=== PATIENT | female | born 1945 | race Caucasian/White ===

== ENCOUNTER 2016-11-23 20:39 | Emergency (ER) | payer OTHER ==
--- NOTE | 2016-11-23 20:43 | PDOC ---
History of Present Illness - General History Source: Patient Exam Limitations: No Limitations - History of Present Illness Initial Comments: 11/23/16 21:08 The patient is a 71 year old female with a significant past medical history of hypertension, and hyperlipidemia, presenting to the Emergency Department with right lower leg pain for two days. The patient reports that on (11/21) she got up from a seated position and felt a sharp pain down her calf. She reports that since then she has had pain from above the knee down to the calf of her right leg. She reports pain at rest, and pain exacerbated by movement or flexion. She admits to taking Tylenol for the pain as well as Naproxen, and applying heat. She states that it is difficult to walk due to the pain, and that she has stayed in bed for the past day and a half. She denies numbness or tingling. She denies any injury to the knee or leg. The patient denies fever, chills, and cough. Patient denies neck pain, or back pain. Patient denies nausea, vomiting, and diarrhea. Patient denies shortness of breath, chest pain, or palpitation. Patient denies recent travel. Past Medical Hx: breast ca (2010) <Ivana Bui - Last Filed: 11/23/16 21:30> <Frances Howard - Last Filed: 11/24/16 03:06> - General Chief Complaint: Pain, Acute Stated Complaint: PAIN TO RT LOWER CALF Time Seen by Provider: 11/23/16 20:42 Past History <Ivana Bui - Last Filed: 11/23/16 21:30> - Past Medical History Anemia: No (RECENTLY-TRANSFUSED WITH 3UNITS PRBCs AFTER HAVING LABS DRAWN-SAW HER PCP) Asthma: No (....C/O "TIRED,SLEEPY"-NOW FOR EGD) Cancer: Yes (LEFT BREAST DECEMBER 2010) Cardiac Disorders: No CVA: No COPD: No CHF: No Dementia: No Diabetes: No GI Disorders: Yes (HX BLEEDING ULCERS 2007-TRANSFUSED AT THAT TIME) Disorders: No HTN: Yes Hypercholesterolemia: Yes Liver Disease: No Seizures: No Thyroid Disease: No - Surgical History Abdominal Surgery: No Appendectomy: Yes (1950) Cardiac Surgery: No Cholecystectomy: No Lung Surgery: No Neurologic Surgery: No Orthopedic Surgery: No - Immunization History Immunization Up to Date: Yes - Psycho/Social/Smoking Cessation Hx Anxiety: No Suicidal Ideation: No Smoking Status: No Smoking History: Never smoked Have you smoked in the past 12 months: No Number of Cigarettes Smoked Daily: 0 Hx Alcohol Use: No Drug/Substance Use Hx: No Substance Use Type: None Hx Substance Use Treatment: No <Frances Howard - Last Filed: 11/24/16 03:06> - Past Medical History Allergies/Adverse Reactions: Allergies Allergy/AdvReac Type Severity Reaction Status Date / Time No Known Drug Allergies Allergy Verified 11/23/16 20:41 Home Medications: Ambulatory Orders Atorvastatin Ca [Lipitor] 10 mg PO Q48H 05/23/16 Dorzolamide HCl [Trusopt 2% -] 1 drop OD BID 05/23/16 Travoprost [Travatan Z] 5 ml OU HS 05/23/16 Pantoprazole Sodium [Protonix -] 40 mg PO BID tablet.ec 05/25/16 Ferrous Sulfate [Slow Release Iron] 142 mg PO DAILY 05/31/16 Fluticasone Prop 0.05% Nasal [Flonase -] 1 - 2 spray NS DAILY 05/31/16 Amlodipine Besylate/Benazepril [Lotrel 5-40 mg Capsule] 1 each PO DAILY Tramadol HCl 50 mg PO TID PRN #20 tablet MDD 3 tablets 11/23/16 Review of Systems - Review of Systems Able to Perform ROS?: Yes Comments:: 11/23/16 21:08 CONSTITUTIONAL: Absent: fever, no chills, no fatigue EYES: Absent: visual changes ENT: Absent: ear pain, no sore throat CARDIOVASCULAR: Absent: chest pain, no palpitations RESPIRATORY: Absent: cough, no SOB GI: Absent: abdominal pain, no nausea, no vomiting, no constipation, no diarrhea GENITOURINARY: Absent: dysuria, no frequency, no hematuria MUSCULOSKELETAL: Present: + pain to right knee, + pain to right lower leg Absent: back pain, no arthralgia, no myalgia SKIN: Absent: rash NEURO: Absent: headache <Ivana Bui - Last Filed: 11/23/16 21:30> *Physical Exam - Vital Signs Last Vital Signs Temp Pulse Resp BP Pulse Ox 99.2 F 96 H 18 163/93 100 11/23/16 20:45 11/23/16 20:45 11/23/16 20:45 11/23/16 20:45 11/23/16 20:45 - Physical Exam Comments: 11/23/16 21:09 GENERAL: The patient is awake, alert, and fully oriented, in no acute distress. HEAD: Normal with no signs of trauma. EYES: Pupils equal, round and reactive to light, extraocular movements intact, sclera anicteric, conjunctiva clear with no pallor. ENT: Ears normal, nares patent, oropharynx clear without exudates. Moist mucous membranes. NECK: Normal range of motion, supple without lymphadenopathy, JVD, or masses. LUNGS: Breath sounds equal, clear to auscultation bilaterally. No wheeze/ crackles. HEART: Regular rate and rhythm, normal S1 and S2 without murmur or rub. ABDOMEN: Soft/nontender/nondistended. BS wnl. No guarding or rebound. No palpable masses. No hepatosplenomegaly. EXTREMITIES: Minimal edema of right knee, no palpable cords. Tenderness of the distal posterior thigh, popliteal region, and the proximal lower leg. No erythema or increased warmth. Pain reproduced with flexion of the knee. No ligament instability. No deformity no ecchymosis. Strongly palpable pulse at midfoot. Motor and sensory functioning intact. Normal range of motion. No clubbing or cyanosis. NEUROLOGICAL: Cranial nerves II through XII grossly intact. Normal speech. PSYCH: Normal mood, normal affect. SKIN: Warm, Dry, normal turgor, no rashes or lesions noted. <Ivana Bui - Last Filed: 11/23/16 21:30> Progress Note - Progress Note Progress Note: Documentation has been prepared under my direction and personally reviewed by me in its entirety. I attest that this documented accurately reflects all work, treatment, procedures and medical decision making performed by me. <Frances Howard - Last Filed: 11/24/16 03:06> Medical Decision Making - Medical Decision Making As noted above, this 71-year-old woman presents with right leg pain that began 2 days prior to admission when she arose from a seated position. No history of overuse or trauma. No previous significant pain with movement. Patient states that she is active and previously had no limitations of her activity secondary to pain in her extremities. No history of risk factors for thromboembolic disease. Exam as noted. Doppler venous study of the right lower extremity shows no evidence of DVT. There is a small anterior fluid collection consistent with effusion of the knee area. 2 position right knee x-ray performed. This shows evidence of some DJD ( spurring of the patella, etc.) but no fracture or dislocation. Knee immobilizer will be placed and patient advised to use this when she is up and around. She should not work until seen by orthopedics (patient is followed by [facility]). 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 She states that she generally needs to move around frequently during her work and sits on low chairs while working with the children. Patient does not take nonsteroidal anti-inflammatories because of history of peptic ulcer disease. She states that Tylenol was fairly ineffective for her episodes of pain. Prescription for Ultram(#20) will transmitted to her pharmacy to be used at needed for more severe pain. Patient was advised that the medication may make her drowsy and not to use it when driving or during other activities that required full attention <Frances Howard - Last Filed: 11/24/16 03:06> *DC/Admit/Observation/Transfer - Attestations Scribe Attestion: 11/23/16 21:11 Documentation prepared by Ivana Bui, acting as medical coding specialist for Frances Howard MD. <Ivana Bui - Last Filed: 11/23/16 21:30> <Frances Howard - Last Filed: 11/24/16 03:06> Diagnosis at time of Disposition: Knee sprain Qualifiers: Encounter type: initial encounter Involved ligament of knee: unspecified ligament Laterality: right Qualified Code(s): S83.91XA - Sprain of unspecified site of right knee, initial encounter - Discharge Dispostion Condition at time of disposition: Fair - Prescriptions Prescriptions: Tramadol HCl 50 mg PO TID PRN #20 tablet MDD 3 tablets PRN Reason: Moderate Pain - Referrals Referrals: Vitaliy Christie MD [Staff Physician] - - Patient Instructions Printed Discharge Instructions: DI for Knee Sprain Additional Instructions: Rest Knee immobilizer when up and around until seen by orthopedics Tylenol as needed for mild pain Tramadol 50 mg up to 3 times a day as needed for more severe pain No work until , November Follow-up with orthopedics ([facility]) within the next 2-3 days - Post Discharge Activity Work/School Note: Back to Work
[2016-11-23 20:56] VITALS: TEMP 99.2; BMI 32.1
[2016-11-23] MEDS ORDERED: KETOROLAC TROMETHAMINE 60 MG/2 ML VIAL IM ONE (22:27)
[2016-11-23] MEDS ORDERED: KETOROLAC TROMETHAMINE 60 MG/2 ML VIAL ONE (22:28)
[2016-11-23 23:23] VITALS: BP 155/82; PULSE 88
== END 2016-11-23 23:23 | disposition home or self-care (01) ==
LOC: FER 20:39
PROC: 3E0233Z Introduction of Anti-inflammatory into Muscle, Percutaneous Approach (ICD-10-PCS; principal; 2016-11-23)
PROC: 2W3QX1Z Immobilization of Right Lower Leg using Splint (ICD-10-PCS; 2016-11-23)
DX: S83.91XA Sprain of unspecified site of right knee, initial encounter (principal); X58.XXXA Exposure to other specified factors, initial encounter; Y93.9 Activity, unspecified; Y92.9 Unspecified place or not applicable; I10 Essential (primary) hypertension; E78.5 Hyperlipidemia, unspecified; Z85.3 Personal history of malignant neoplasm of breast
CPT/HCPCS: 73560-TC-RT; 93971-TC; 99282-25

== ENCOUNTER 2017-01-21 16:18 | Inpatient (IN) | payer OTHER ==
--- NOTE | 2017-01-21 16:57 | PDOC ---
History of Present Illness - General History Source: Patient, Old Records, Primary Care Provider Exam Limitations: No Limitations - History of Present Illness Initial Comments: 01/21/17 17:21 The patient is a 71 year old female, with a significant past medical history of hypertension, hyperlipidemia, breast CA (2010) and glaucoma, who presents to the emergency department sent in by Dr. Marcano for evaluation secondary to abnormal bloodwork (Hgb of 6.2). The patient reports that she has been feeling weak and tired over the past couple of days. She visited her PCP yesterday and had bloodwork done, which revealed Hgb of 6.2 so she was referred to the ED for further evaluation. The patient additionally reports dark colored stools but denies any palmira rectal bleeding. The patient does report a history of bleeding ulcers (2006) for which she needed a blood transfusion. The patient denies chest pain or shortness of breath. The patient denies fever, chills, nausea, vomiting, diarrhea or dysuria. Allergies: None reported. Past Surgical History: Appendectomy. Social History: Non smoker. Denies alcohol or drug use. PCP: Dr. Kylee Marcano <Nancy Magaña - Last Filed: 01/21/17 17:52> <Aileen Houston - Last Filed: 01/21/17 18:40> - General Chief Complaint: Blood Transfusion Stated Complaint: PCP SENT/BLOOD TRANSFUSION Time Seen by Provider: 01/21/17 16:49 Past History <Nancy Magaña - Last Filed: 01/21/17 17:52> - Past Medical History Anemia: Yes (RECENTLY-TRANSFUSED WITH 3UNITS PRBCs AFTER HAVING LABS DRAWN-SAW HER PCP) Asthma: No (....C/O "TIRED,SLEEPY"-NOW FOR EGD) Cancer: Yes (LEFT BREAST DECEMBER 2010) Cardiac Disorders: No CVA: No COPD: No CHF: No Dementia: No Diabetes: No GI Disorders: Yes (HX BLEEDING ULCERS 2006-TRANSFUSED AT THAT TIME) Disorders: No HTN: Yes Hypercholesterolemia: Yes Liver Disease: No Seizures: No Thyroid Disease: No Other medical history: glaucoma - Surgical History Abdominal Surgery: No Appendectomy: Yes (1950) Cardiac Surgery: No Cholecystectomy: No Lung Surgery: No Neurologic Surgery: No Orthopedic Surgery: No - Immunization History Immunization Up to Date: Yes - Psycho/Social/Smoking Cessation Hx Anxiety: No Suicidal Ideation: No Smoking Status: No Smoking History: Never smoked Have you smoked in the past 12 months: No Number of Cigarettes Smoked Daily: 0 Information on smoking cessation initiated: No Hx Alcohol Use: No Drug/Substance Use Hx: No Substance Use Type: None Hx Substance Use Treatment: No <CelsoRamandeepAileen - Last Filed: 01/21/17 18:40> - Past Medical History Allergies/Adverse Reactions: Allergies Allergy/AdvReac Type Severity Reaction Status Date / Time No Known Drug Allergies Allergy Verified 01/21/17 16:20 Home Medications: Ambulatory Orders Atorvastatin Ca [Lipitor] 10 mg PO Q48H 05/23/16 Dorzolamide HCl [Trusopt 2% -] 1 drop OD BID 05/23/16 Travoprost [Travatan Z] 5 ml OU HS 05/23/16 Pantoprazole Sodium [Protonix -] 40 mg PO BID tablet.ec 05/25/16 Ferrous Sulfate [Slow Release Iron] 142 mg PO DAILY 05/31/16 Fluticasone Prop 0.05% Nasal [Flonase -] 1 - 2 spray NS DAILY 05/31/16 Amlodipine Besylate/Benazepril [Lotrel 5-40 mg Capsule] 1 each PO DAILY Tramadol HCl 50 mg PO TID PRN #20 tablet MDD 3 tablets 11/23/16 Review of Systems - Review of Systems Able to Perform ROS?: Yes Comments:: 01/21/17 17:14 GENERAL/CONSTITUTIONAL: +Weakness. No fever or chills. HEAD, EYES, EARS, NOSE AND THROAT: No change in vision. No ear pain or discharge. No sore throat. CARDIOVASCULAR: No chest pain or shortness of breath. RESPIRATORY: No cough, wheezing, or hemoptysis. GASTROINTESTINAL: +Dark stools. No nausea, vomiting, diarrhea or constipation. GENITOURINARY: No dysuria, frequency, or change in urination. MUSCULOSKELETAL: No joint or muscle swelling or pain. No neck or back pain. SKIN: No rash. NEUROLOGIC: No headache, vertigo, loss of consciousness, or change in strength/ sensation. ENDOCRINE: No increased thirst. No abnormal weight change. HEMATOLOGIC/LYMPHATIC: No easy bleeding or history of blood clots. ALLERGIC/IMMUNOLOGIC: No hives or skin allergy. <Nancy Magaña - Last Filed: 01/21/17 17:52> *Physical Exam - Vital Signs Last Vital Signs Temp Pulse Resp BP Pulse Ox 98.1 F 107 H 18 143/75 100 01/21/17 16:20 01/21/17 16:20 01/21/17 16:20 01/21/17 16:20 01/21/17 16:20 - Physical Exam Comments: 01/21/17 17:13 GENERAL: Awake, alert, and fully oriented, in no acute distress. HEAD: No signs of trauma. EYES: PERRLA, EOMI, sclera anicteric, conjunctiva clear. ENT: Auricles normal inspection, hearing grossly normal, nares patent, oropharynx clear without exudates. Moist mucosa. NECK: Normal ROM, supple, no lymphadenopathy, JVD, or masses. LUNGS: Breath sounds equal, clear to auscultation bilaterally. No wheezes, and no crackles. HEART: Regular rate and rhythm, normal S1 and S2, no murmurs, rubs or gallops. ABDOMEN: Soft, nontender, normoactive bowel sounds. No guarding, no rebound. No masses. EXTREMITIES: Normal range of motion, no edema. No clubbing or cyanosis. No cords , erythema, or tenderness. NEUROLOGICAL: Cranial nerves II through XII intact. Normal speech, normal gait. SKIN: Warm, dry, normal turgor, no rashes or lesions noted. <Nancy Magaña - Last Filed: 01/21/17 17:52> - Vital Signs Last Vital Signs Temp Pulse Resp BP Pulse Ox 98.1 F 107 H 18 143/75 100 01/21/17 16:20 01/21/17 16:20 01/21/17 16:20 01/21/17 16:20 01/21/17 16:20 <Aileen Houston - Last Filed: 01/21/17 18:40> ED Treatment Course - LABORATORY CBC & Chemistry Diagram: 01/21/17 16:45 <Nancy Magaña - Last Filed: 01/21/17 17:52> - LABORATORY CBC & Chemistry Diagram: 01/21/17 16:45 <Aileen Houston - Last Filed: 01/21/17 18:40> *DC/Admit/Observation/Transfer - Attestations Scribe Attestion: 01/21/17 17:01 Documentation prepared by Nancy Magaña, acting as bacteriologist medical for Aileen Houston MD. <Nancy Magaña - Last Filed: 01/21/17 17:52> - Discharge Dispostion Admit: Yes <Aileen Houston - Last Filed: 01/21/17 18:40> Diagnosis at time of Disposition: Anemia Qualifiers: Anemia type: unspecified type Qualified Code(s): D64.9 - Anemia, unspecified - Discharge Dispostion Condition at time of disposition: Stable - Referrals Referrals: Kylee Marcano MD [Primary Care Provider] -
[2017-01-21 20:18] LABS: INR 1.17 (0.82-1.09); PROTHROMBIN TIME (PATIENT) 12.9 SEC (9.98-11.88)
[2017-01-21 21:15] LABS: ALBUMIN 3.3 g/dl (3.4-5.0); ANION GAP 9 (8-16); CALCIUM 7.9 mg/dL (8.5-10.1); CO2 25 mmol/L (21-32); COCKROFT - GAULT 112.4465; CREATININE 0.6 mg/dL (0.55-1.02); GLUCOSE,RANDOM 112 mg/dL (74-106); SGOT/AST 12 U/L (15-37); SGPT/ALT 15 U/L (12-78)
[2017-01-21 21:19] LABS: ALK PHOS 90 U/L (45-117); BILIRUBIN,TOTAL 0.3 mg/dL (0.2-1.0); FERRITIN 4.278 ng/ml (6.9-282.5); LDH 158 U/L (84-246); TOT PROT 6.1 g/dl (6.4-8.2)
[2017-01-21 21:32] LABS: BASOPHIL 0.9 % (0-2.0); EOSINOPHIL 0.8 % (0-4.5); MCH 21.5 pg (25.7-33.7); MCHC 28.8 g/dl (32.0-36.0); MEAN CELL VOLUME 74.9 fl (80-96); MEAN PLT VOLUME 9.1 fl (7.5-11.1); PLATELET COUNT 249 K/MM3 (134-434); RDW 21.2 % (11.6-15.6); WHITE BLOOD COUNT 9.9 K/mm3 (4.0-10.0)
[2017-01-22 00:44] VITALS: BMI 34.7
[2017-01-22 07:08] LABS: MCH 23.5 pg (25.7-33.7); MCHC 30.8 g/dl (32.0-36.0); MEAN CELL VOLUME 76.5 fl (80-96); MEAN PLT VOLUME 8.4 fl (7.5-11.1); PLATELET COUNT 189 K/MM3 (134-434); RDW 20.8 % (11.6-15.6)
[2017-01-22 07:31] LABS: ALBUMIN 2.7 g/dl (3.4-5.0); ALK PHOS 74 U/L (45-117); ANION GAP 7 (8-16); BILIRUBIN,TOTAL 0.3 mg/dL (0.2-1.0); CALCIUM 7.7 mg/dL (8.5-10.1); CO2 27 mmol/L (21-32); COCKROFT - GAULT 137.9805; CREATININE 0.5 mg/dL (0.55-1.02); GLUCOSE,RANDOM 103 mg/dL (74-106); SGOT/AST 9 U/L (15-37); SGPT/ALT 13 U/L (12-78); TOT PROT 5.3 g/dl (6.4-8.2)
[2017-01-22] MEDS ORDERED: amLODIPine BESYLATE 5 MG TABLET (FP) PO SCH (10:00)
[2017-01-22] MEDS: PANTOPRAZOLE 40 MG TABLET (FP) PO SCH ×2 (10:02→21:16)
[2017-01-22] MEDS: DORZOLAMIDE 2% HCL OPHTHALMIC SOLUTION 10 ML BOTTLE OD SCH ×2 (10:08→21:17)
--- NOTE | 2017-01-22 11:43 | CON.GI ---
Consult Consult Specialty:: Gastroenterology Referred by:: Dr. Marcano Reason for Consultation:: Anemia - History of Present Illness Chief Complaint: Anemia History of Present Illness: 71W is admitted with a Hb of 6.0 and has dropped to 5.4. She denies any overt bleeding or GI symptoms. She had a similar anemia 11 years ago when she has panendoscopy, enteroscopy and capsule endoscopy with Dr Hernandez. Colonoscopy on 02/03/07 revealed moderate sigmoid diverticulosis. EGD on revealed a large hiatal hernia with a distal esophageal ulcer (GE junction) and moderate gastritis. Enteroscopy on 05/13/17 revealed that the esophageal ulcer had healed not revealed new antral ulcerations. No AVMs were seen. . The ulcers were all healed by her 09/03/07 EGD. Since then she has had colonoscopies with Dr Thomason and had polyps removed but cannot recall when they were last done. Following a LEEP on 05/15/16 for cervical dysplasia she preseneted with a Hb drop form 11 to 6.5 on 05/24/[address] Pastrana saw her in consultation and advised repeat endoscopies. She followed up with Dr Thomason but does not believe she had any endoscopies performed and I cannot find any in [employer]. - History Source History Provided By: Patient Limitations to Obtaining History: No Limitations - Past Medical History Cardio/Vascular: Yes: HTN, Hyperlipdemia Gastrointestinal: Yes: Diverticulosis, GERD, Hiatal Hernia, Peptic Ulcer Disease , Other (Colon polyps removed by Dr Thomason) ...: No Heme/Onc: Yes: Anemia (transfused in the past), Other (Left breast cancer with partial mastectomy, RT then tamoxifen) Musculoskeletal: Yes: Osteoarthritis Additional Medical History: Glaucoma. Torn right knee meniscus - Past Surgical History Past Surgical History: Yes: Appendectomy, Colonoscopy, Mastectomy (Left partial mastectomy 2010 with failed implants then flap reconstruction), Tonsillectomy, Upper Endoscopy Additional Surgical History: Right eye glaucoma surgery. Leep for cervical dysplasia 2015. Right breast reduction 2010. Left breast implants x 2 then removed - Alcohol/Substance Use Hx Alcohol Use: No - Smoking History Smoking history: Never smoked Have you smoked in the past 12 months: No Aproximately how many cigarettes per day: 0 Home Medications - Allergies Allergies/Adverse Reactions: Allergies Allergy/AdvReac Type Severity Reaction Status Date / Time No Known Drug Allergies Allergy Verified 01/21/17 16:20 - Home Medications Home Medications: Ambulatory Orders Atorvastatin Ca [Lipitor] 10 mg PO Q48H 05/23/16 Dorzolamide HCl [Trusopt 2% -] 1 drop OD BID 05/23/16 Travoprost [Travatan Z] 5 ml OU HS 05/23/16 Pantoprazole Sodium [Protonix -] 40 mg PO BID tablet.ec 05/25/16 Ferrous Sulfate [Slow Release Iron] 142 mg PO DAILY 05/31/16 Fluticasone Prop 0.05% Nasal [Flonase -] 1 - 2 spray NS DAILY 05/31/16 Amlodipine Besylate/Benazepril [Lotrel 5-40 mg Capsule] 1 each PO DAILY Tramadol HCl 50 mg PO TID PRN #20 tablet MDD 3 tablets 11/23/16 Physical Exam-GI Vital Signs: Vital Signs Temperature 99 F 01/22/17 10:00 Pulse Rate 83 01/22/17 10:00 Respiratory Rate 20 01/22/17 10:00 Blood Pressure 111/66 01/22/17 10:00 O2 Sat by Pulse Oximetry (%) 100 01/22/17 09:00 Labs: CBC, BMP 01/22/17 06:00 01/22/17 06:00 INR, PTT INR 1.17 (0.82-1.09) H 01/21/17 19:31 Assessment/Plan Given her severe anemia and active bleeding panendoscopy has been proposed. I have informed Natali of the potential for such risks as perforation and hemorrhage among others and she has granted informed consents for both EGD and colonoscopy. Will do EGD tomorrow. Agree with transfusing and PPI therapy. May come to need a repeat capsule endoscopy as well. Further recommendations will be based on endoscopic findings. I thank you for this consultative opportunity
--- NOTE | 2017-01-22 11:49 | HP ---
DATE OF ADMISSION: 01/21/2017 DATE OF DICTATION: 01/22/2017 HISTORY OF PRESENT ILLNESS: This is a 71-year-old female known to have hypertension, who came to my office on January 20 with complaints of weakness. CBC done in the office showed hemoglobin of 6. Yesterday, I told her to come to the ER, she got admitted and blood transfusions. She denies any obvious rectal bleeding. In the past also, she had similar episode. Workup at that time was negative. EGD colonoscopy was done. Also patient had a camera swallow, which also did not show up anything much. Yesterday, her stool guaiac was positive. She had breast reconstructive surgery followed by infections and was admitted here 4 years ago and then again, last April, she was admitted here with anemia and blood loss. She is working, has grown-up children, . ALLERGIES: No known allergies. MEDICATIONS: At home, she is on lisinopril for high blood pressure and amlodipine for high blood pressure. She also takes Lipitor for her hyperlipidemia. PHYSICAL EXAMINATION: General: This morning, he is awake, alert in respiratory distress moderate. Vital signs: Today, her blood pressure is 99/53, temperature 98, pulse 90, respirations 20. HEENT: Unremarkable. Neck: supple. No JVD. Lungs: Clear. Heart: S1, S2 normal. No S3, S4. Abdomen: Soft. Breast: She has breast reconstruction in place. Extremities: Legs no edema. IMAGING: Chest x-ray done in the ER hiatal hernia, no acute changes. LABORATORY REPORTS: Yesterday. WBC 9.9, hemoglobin 5.4, platelets 249. Chemistry: Sodium 144, potassium 4.1, chloride 110, CO2 of 25, BUN 21, creatinine 0.6. LFTs are normal. IMPRESSION: Anemia, possible gastrointestinal bleeding. PLAN: Blood transfusion, GI consult to Dr. Brantley and team. Will follow. Kit [id number]
[2017-01-22] MEDS: LISINOPRIL 20 MG TABLET (FP) PO SCH (13:05)
[2017-01-22] MEDS: POLYETHYLENE GLYCOL 3350 119 GM BTL PO SCH ×2 (13:21→21:16)
[2017-01-22 16:13] LABS: BASOPHIL 0.8 % (0-2.0); EOSINOPHIL 1.1 % (0-4.5); MCH 24.4 pg (25.7-33.7); MEAN CELL VOLUME 78.7 fl (80-96); MEAN PLT VOLUME 9.3 fl (7.5-11.1); NEUTROPHILS 70.4 % (42.8-82.8); PLATELET COUNT 217 K/MM3 (134-434); RDW 19.6 % (11.6-15.6); WHITE BLOOD COUNT 8.3 K/mm3 (4.0-10.0)
[2017-01-22] MEDS: ATORVASTATIN CA 40 MG TABLET (FP) PO SCH ×2 (21:16→21:25)
[2017-01-22] MEDS: LATANOPROST 0.005% OPHTH SOLN 2.5ML BOTTLE OU SCH (21:17)
[2017-01-22] MEDS: ATORVASTATIN CA 10 MG TABLET (FP) PO SCH (21:41)
[2017-01-22] MEDS: amLODIPine BESYLATE 5 MG TABLET (FP) PO SCH (21:42)
[2017-01-23] MEDS: POLYETHYLENE GLYCOL 3350 119 GM BTL PO SCH ×3 (05:27→23:15)
[2017-01-23 07:52] LABS: EOSINOPHIL 1.5 % (0-4.5); MCH 24.5 pg (25.7-33.7); MEAN CELL VOLUME 76.6 fl (80-96); MEAN PLT VOLUME 8.7 fl (7.5-11.1); NEUTROPHILS 69.5 % (42.8-82.8); PLATELET COUNT 192 K/MM3 (134-434); RDW 19.6 % (11.6-15.6); WHITE BLOOD COUNT 6.4 K/mm3 (4.0-10.0)
[2017-01-23 08:08] LABS: HAPTOGLOBIN 171 mg/dL (34-200); SERUM IRON 16 ug/dL (27-139); TOTAL IRON BINDING CAPACITY 482 ug/dL (250-450); TRANSFERRIN 435 mg/dL (200-370); UIBC 466 ug/dL (118-369)
[2017-01-23 08:20] LABS: ANION GAP 8 (8-16); C-REACTIVE PROTEIN < 0.3 MG/DL (0.00-0.3); CALCIUM 8.2 mg/dL (8.5-10.1); CO2 28 mmol/L (21-32); CREATININE 0.6 mg/dL (0.55-1.02); GLUCOSE,RANDOM 90 mg/dL (74-106)
--- NOTE | 2017-01-23 08:45 | PN ---
Progress Note, Physician Chief Complaint: Feels better History of Present Illness: Dr Josephs GI consult appreciated,EGD today Received 2units of blood ,Hb today 7.9 - Current Medication List Current Medications: Active Medications Amlodipine Besylate (Norvasc -) 5 mg PO HS [facility] Last Admin: 01/22/17 21:42 Dose: 5 mg Atorvastatin Calcium (Lipitor -) 10 mg PO HS [facility] Last Admin: 01/22/17 21:41 Dose: 10 mg Dorzolamide HCl (Trusopt 2%) 1 drop OD BID [facility] Last Admin: 01/22/17 21:17 Dose: 1 drop Latanoprost (Xalatan 0.005% Eye Drops -) 1 drop OU HS [facility] Last Admin: 01/22/17 21:17 Dose: 1 drop Lisinopril (Prinivil) 40 mg PO DAILY [facility] Last Admin: 01/22/17 13:05 Dose: Not Given Pantoprazole Sodium (Protonix -) 40 mg PO BID [facility] Last Admin: 01/22/17 21:16 Dose: 40 mg Polyethylene Glycol (Miralax (For Daily Use) -) 17 gm PO TID [facility] Last Admin: 01/23/17 05:27 Dose: Not Given - Objective Vital Signs: Vital Signs Temperature 98.5 F 01/23/17 06:00 Pulse Rate 79 01/23/17 06:00 Respiratory Rate 20 01/23/17 06:00 Blood Pressure 108/65 01/23/17 06:00 O2 Sat by Pulse Oximetry (%) 98 01/22/17 21:00 Constitutional: Yes: Calm Eyes: Yes: WNL HENT: Yes: WNL Neck: Yes: WNL Cardiovascular: Yes: WNL Respiratory: Yes: WNL ...Rectal Exam: Yes: Deferred Genitourinary: Yes: WNL Musculoskeletal: Yes: WNL Edema: No Neurological: Yes: Alert Labs: CBC, BMP 01/23/17 06:00 INR, PTT INR 1.17 (0.82-1.09) H 01/21/17 19:31 Assessment/Plan Cleared for EGD, will transfuse , 2more units
[2017-01-23] MEDS: LISINOPRIL 20 MG TABLET (FP) PO SCH (11:13)
[2017-01-23] MEDS: PANTOPRAZOLE 40 MG TABLET (FP) PO SCH ×2 (11:14→23:15)
[2017-01-23] MEDS: DORZOLAMIDE 2% HCL OPHTHALMIC SOLUTION 10 ML BOTTLE OD SCH ×2 (11:14→23:16)
[2017-01-23] MEDS ORDERED: LIDOCAINE HCL/PF 2% SDV 5ML VIAL ONE (12:25)
[2017-01-23] MEDS ORDERED: PROPOFOL 20 ML ONE ×3 (12:25)
--- NOTE | 2017-01-23 13:11 | PN ---
Progress Note (short form) - Note Progress Note: EGD complete. Procedure report placed in procedural section of physical chart and to be scanned into [employer]
[2017-01-23] MEDS ORDERED: BISACODYL 5 MG TABLET.DR (FP) PO ONE (16:00)
[2017-01-23] MEDS ORDERED: POLYETHYLENE GLYCOL 3350 255 GM BTL PO ONE (17:00)
[2017-01-23] MEDS: ATORVASTATIN CA 10 MG TABLET (FP) PO SCH (23:15)
[2017-01-23] MEDS: amLODIPine BESYLATE 5 MG TABLET (FP) PO SCH (23:15)
[2017-01-23] MEDS: LATANOPROST 0.005% OPHTH SOLN 2.5ML BOTTLE OU SCH (23:16)
[2017-01-24] MEDS: POLYETHYLENE GLYCOL 3350 119 GM BTL PO SCH ×3 (06:49→22:14)
--- NOTE | 2017-01-24 09:28 | PN ---
Progress Note, Physician Chief Complaint: Feels good History of Present Illness: Scheduled for colonoscopy today - Current Medication List Current Medications: Active Medications Amlodipine Besylate (Norvasc -) 5 mg PO [facility] Last Admin: 01/23/17 23:15 Dose: 5 mg Atorvastatin Calcium (Lipitor -) 10 mg PO HS [facility] Last Admin: 01/23/17 23:15 Dose: 10 mg Dorzolamide HCl (Trusopt 2%) 1 drop OD BID [facility] Last Admin: 01/23/17 23:16 Dose: 1 drop Latanoprost (Xalatan 0.005% Eye Drops -) 1 drop OU [facility] Last Admin: 01/23/17 23:16 Dose: 1 drop Lisinopril (Prinivil) 40 mg PO DAILY [facility] Last Admin: 01/23/17 11:13 Dose: Not Given Pantoprazole Sodium (Protonix -) 40 mg PO BID [facility] Last Admin: 01/23/17 23:15 Dose: 40 mg Polyethylene Glycol (Miralax (For Daily Use) -) 17 gm PO TID [facility] Last Admin: 01/24/17 06:49 Dose: Not Given - Objective Vital Signs: Vital Signs Temperature 98.9 F 01/24/17 06:00 Pulse Rate 79 01/24/17 06:00 Respiratory Rate 18 01/24/17 06:00 Blood Pressure 109/64 01/24/17 06:00 O2 Sat by Pulse Oximetry (%) 98 01/23/17 14:04 Constitutional: Yes: No Distress Eyes: Yes: WNL HENT: Yes: WNL Neck: Yes: WNL Cardiovascular: Yes: WNL Respiratory: Yes: WNL Gastrointestinal: Yes: WNL ...Rectal Exam: Yes: Deferred Genitourinary: Yes: WNL Musculoskeletal: Yes: WNL Extremities: Yes: WNL Integumentary: Yes: WNL Neurological: Yes: Alert ...Motor Strength: WNL Labs: CBC, BMP 01/23/17 06:00 01/23/17 06:00 INR, PTT INR 1.17 (0.82-1.09) H 01/21/17 19:31 Assessment/Plan Colonoscopy today
[2017-01-24] MEDS ORDERED: PT OWN MED DRAWER 7, Y5N ONE (10:55)
[2017-01-24] MEDS: LISINOPRIL 20 MG TABLET (FP) PO SCH (11:10)
[2017-01-24] MEDS: PANTOPRAZOLE 40 MG TABLET (FP) PO SCH ×2 (11:10→22:14)
[2017-01-24] MEDS: DORZOLAMIDE 2% HCL OPHTHALMIC SOLUTION 10 ML BOTTLE OD SCH ×2 (11:10→22:14)
--- NOTE | 2017-01-24 12:01 | PATH ---
Surgical Pathology Report Patient Name: INDIGO NEVILLE Med. Rec. #: [id number] /Age/Gender: 1945 (Age: 71) / F Account: [id number] Location: [facility] MED/SURG Taken: 01/23/2017 Received: 01/23/2017 Reported: 01/24/2017 Physicians: Naeem Sutherland D.O. Specimen(s) Received BX BODY/STOMACH Clinical History Anemia Carlos Eduardo ulcers, hiatal hernia Final Diagnosis STOMACH, BODY, BIOPSY: FOCAL MILD CHRONIC GASTRITIS. IMMUNOSTAIN FOR H. PYLORI IS NEGATIVE. Electronically Signed Brad Leo M.D. Gross Description Received in formalin, labeled "biopsy body stomach" are 7 dobbs, irregular portions of soft tissue ranging from 0.1-0.4 cm. in greatest dimension. The specimens are submitted in toto in one cassette. 01/23/201701/23/2017
--- NOTE | 2017-01-24 14:38 | PN ---
Progress Note (short form) - Note Progress Note: GI Procedure Note: Please see scanned colonoscopy report. Three small right colon and cecal polyps removed. No source of anemia found. I have advised capsule endoscopy with Dr Pastrana. Natali will call our office to set it up. No GI objections to discharge.
[2017-01-24] MEDS: amLODIPine BESYLATE 5 MG TABLET (FP) PO SCH (22:14)
[2017-01-24] MEDS: LATANOPROST 0.005% OPHTH SOLN 2.5ML BOTTLE OU SCH (22:14)
[2017-01-24] MEDS: ATORVASTATIN CA 10 MG TABLET (FP) PO SCH (22:14)
[2017-01-25] MEDS: POLYETHYLENE GLYCOL 3350 119 GM BTL PO SCH (07:36)
[2017-01-25] MEDS: PANTOPRAZOLE 40 MG TABLET (FP) PO SCH (09:01)
--- NOTE | 2017-01-25 11:33 | DS ---
Physical Examination Vital Signs: Vital Signs Temperature 98.4 F 01/25/17 07:05 Pulse Rate 72 01/25/17 07:05 Respiratory Rate 20 01/25/17 07:05 Blood Pressure 118/67 01/25/17 07:05 O2 Sat by Pulse Oximetry (%) 99 01/24/17 21:00 Findings/Remarks: 71 yrs old F with H/O HTN, Hypercholasterolemia, COPD and GI bleeding in the past admitted with Hb of 6.0 and has dropped to 5.4. Patient denies any overt bleeding or GI symptoms, patient had a similar anemia 11 years ago when she has panendoscopy, enteroscopy and capsule endoscopy with Dr Hernandez. Colonoscopy on 02/03/07 revealed moderate sigmoid diverticulosis, EGD showed a large hiatal hernia with a distal esophageal ulcer (GE junction) and moderate gastritis. Enteroscopy on 05/13/07 revealed that the esophageal ulcer had healed not revealed new antral ulcerations. No AVMs were seen. patient present with low Hb with low Iron stores.. Constitutional: Yes: Well Nourished, No Distress, Calm Eyes: Yes: WNL, Conjunctiva Clear HENT: Yes: WNL, Atraumatic, Normocephalic. No: Epistaxis Neck: Yes: WNL, Supple, Trachea Midline Cardiovascular: Yes: WNL, Regular Rate and Rhythm Respiratory: Yes: WNL, Regular, CTA Bilaterally Gastrointestinal: Yes: WNL, Normal Bowel Sounds, Soft. No: Tenderness, Epigastrium ...Rectal Exam: Yes: Deferred Renal/: Yes: WNL Musculoskeletal: Yes: WNL. No: Back Pain Extremities: Yes: WNL. No: Calf Tenderness Edema: No Peripheral Pulses WNL: No Neurological: Yes: WNL, Alert, Oriented ...Motor Strength: WNL, LUE, LLE, RUE, RLE Labs: CBC, BMP 01/23/17 06:00 01/23/17 06:00 Discharge Summary Reason For Visit: ANEMIA Current Active Problems Symptomatic Anemia (Acute) Due to Blood loss. Procedures: Principal: Upper GI Endoscopy. Colonoscopy with Polp removal Hospital Course: Patient admitted with symptomatic anemia, , no obvios sourse of bleeding , picture is consistent with CHERRIE , upper GI endoscopy and colonoscopy perforned , No obvious GI sourse of Bleeding, Patient recived 2 units of blood transfusion H/H is stable. Condition: Good - Instructions Diet, Activity, Other Instructions: Diet as Tolerated Avoid ASA or any NSAID Pian medication Activity as tolerated Referrals: Kylee Marcano MD [Primary Care Provider] - 1 Week Disposition: HOME - Home Medications Comprehensive Discharge Medication List: Ambulatory Orders Atorvastatin Ca [Lipitor] 10 mg PO Q48H 05/23/16 Dorzolamide HCl [Trusopt 2% -] 1 drop OD BID 05/23/16 Travoprost [Travatan Z] 5 ml OU HS 05/23/16 Pantoprazole Sodium [Protonix -] 40 mg PO BID tablet.ec 05/25/16 Ferrous Sulfate [Slow Release Iron] 142 mg PO DAILY 05/31/16 Fluticasone Prop 0.05% Nasal [Flonase -] 1 - 2 spray NS DAILY 05/31/16 Amlodipine Besylate/Benazepril [Lotrel 5-40 mg Capsule] 1 each PO DAILY Tramadol HCl 50 mg PO TID PRN #20 tablet MDD 3 tablets 11/23/16
[2017-01-25] MEDS ORDERED: FERROUS SO4 325 MG TABLET (FP) PO SCH (12:00)
[2017-01-25] MEDS: LISINOPRIL 20 MG TABLET (FP) PO SCH (12:06)
[2017-01-25 14:17] VITALS: BP 128/69; PULSE 84; TEMP 99
[2017-01-25 15:53] LABS: BASOPHIL 0.7 % (0-2.0); EOSINOPHIL 1.4 % (0-4.5); MCH 25.2 pg (25.7-33.7); MEAN CELL VOLUME 81.3 fl (80-96); MEAN PLT VOLUME 9.4 fl (7.5-11.1); NEUTROPHILS 70.4 % (42.8-82.8); PLATELET COUNT 228 K/MM3 (134-434); RDW 20.7 % (11.6-15.6); WHITE BLOOD COUNT 7.1 K/mm3 (4.0-10.0)
[2017-01-25] MEDS ORDERED: ASCORBIC ACID 250 MG TABLET (FP) PO SCH (22:00)
--- NOTE | 2017-01-28 11:52 | PATH ---
Surgical Pathology Report Patient Name: INDIGO NEVILLE [facility]. Rec. #: [id number] /Age/Gender: 1945 (Age: 71) / F Account: [id number] Location: [facility] MED/SURG Taken: 01/24/2017 Received: 01/27/2017 Reported: 01/28/2017 Physicians: Uma Brantley M.D. Specimen(s) Received A: BX RIGHT COLON POLYP B: BX CECAL POLYP C: ILEOCECAL VALVE POLYP Clinical History Anemia Colon polyps Final Diagnosis A. COLON, RIGHT, POLYP, BIOPSY: FRAGMENTS OF TUBULAR ADENOMA. B. COLON, CECUM, POLYP, BIOPSY: CONSISTENT WITH INFLAMMATORY/POSTINFLAMMATORY-TYPE POLYP. C. ILEOCECAL VALVE, POLYP, BIOPSY: POLYPOID FRAGMENTS OF COLONIC MUCOSA WITH SURFACE HYPERPLASTIC CHANGE. Electronically Signed Familia Vick M.D. Gross Description A. Received in formalin, labeled "biopsy right colon polyps" are 2 dobbs, irregular portions of soft tissue measuring 0.1 and 0.3 cm in greatest dimension. The specimens are submitted in toto in one cassette. B. Received in formalin, labeled "biopsy cecal polyp" are 2 dobbs, irregular portions of soft tissue averaging 0.3 cm in greatest dimension. The specimens are submitted in toto in one cassette. C. Received in formalin, labeled "biopsy ileocecal valve polyp" are 2 dobbs, irregular portions of soft tissue measuring 0.3 and 0.4 cm in greatest dimension. The specimens are submitted in toto in one cassette. 01/27/201701/27/2017
== END 2017-01-25 17:30 | disposition home or self-care (01) | DRG 812 ==
LOC: JER 16:18 → JERBED 18:40 → J7W 22:57
PROVIDERS: ADMIT Internal Medicine; ATTEND Internal Medicine
PROC: 0DB68ZX Excision of Stomach, Via Natural or Artificial Opening Endoscopic, Diagnostic (ICD-10-PCS; principal; 2017-01-23 13:00)
PROC: 0DBK8ZX Excision of Ascending Colon, Via Natural or Artificial Opening Endoscopic, Diagnostic (ICD-10-PCS; 2017-01-24)
PROC: 0DBC8ZX Excision of Ileocecal Valve, Via Natural or Artificial Opening Endoscopic, Diagnostic (ICD-10-PCS; 2017-01-24)
PROC: 0DBH8ZX Excision of Cecum, Via Natural or Artificial Opening Endoscopic, Diagnostic (ICD-10-PCS; 2017-01-24)
PROC: 30233N1 Transfusion of Nonautologous Red Blood Cells into Peripheral Vein, Percutaneous Approach (ICD-10-PCS; 2017-01-24)
DX: D50.0 Iron deficiency anemia secondary to blood loss (chronic) (principal); D64.9 Anemia, unspecified; K44.9 Diaphragmatic hernia without obstruction or gangrene; I10 Essential (primary) hypertension; E78.5 Hyperlipidemia, unspecified; H40.9 Unspecified glaucoma; K64.8 Other hemorrhoids; J44.9 Chronic obstructive pulmonary disease, unspecified; K29.60 Other gastritis without bleeding
CPT/HCPCS: 36415; 36430; 71010-TC; 80048; 80053; 82272; 82728; 83010; 83540; 83550; 83615; 84466; 85025; 85027; 85044; 85610; 86140; 86850; 86870; 86900; 86901; 86902; 86922; 88305-TC; 99283-25; P9038; P9058

== ENCOUNTER 2017-05-19 08:55 | Day surgery (SDC) | payer OTHER ==
[2017-05-13 16:18] VITALS: BMI 34.0
[2017-05-19] MEDS ORDERED: PROPOFOL 20 ML ONE ×3 (09:36)
[2017-05-19 11:07] VITALS: TEMP 97.5
[2017-05-19 11:29] VITALS: BP 108/61; PULSE 63
--- NOTE | 2017-05-21 15:30 | PATH ---
Surgical Pathology Report Patient Name: INDIGO NEVILLE [facility] Rec. #: [id number] /Age/Gender: 1945 (Age: 71) / F Account: [id number] Location: Taken: 05/19/2017 Received: 05/19/2017 Reported: 05/21/2017 Physicians: Lefty Thomason M.D. Specimen(s) Received BX ANTRUM Clinical History GI bleed Gastritis Final Diagnosis ANTRUM, BIOPSY: MILD CHRONIC GASTRITIS. IMMUNOSTAIN IS NEGATIVE FOR H. PYLORI ORGANISMS. Electronically Signed Jeanne Obrien M.D. Gross Description Received in formalin, labeled "antrum" are 2 dobbs, irregular portions of soft tissue measuring 0.1 and 0.4 cm. in greatest dimension. The specimens are submitted in toto in one cassette. 05/20/201705/20/2017
== END 2017-05-19 11:45 | disposition home or self-care (01) ==
LOC: FASU-ENDO 08:55
PROVIDERS: ATTEND Internal Medicine Gastroenterology
PROC: 0DB98ZX Excision of Duodenum, Via Natural or Artificial Opening Endoscopic, Diagnostic (ICD-10-PCS; principal; 2017-05-19 10:37)
PROC: 0DB68ZX Excision of Stomach, Via Natural or Artificial Opening Endoscopic, Diagnostic (ICD-10-PCS; 2017-05-19 10:37)
DX: D50.0 Iron deficiency anemia secondary to blood loss (chronic) (principal); K29.50 Unspecified chronic gastritis without bleeding; K31.819 Angiodysplasia of stomach and duodenum without bleeding
CPT/HCPCS: 88305-TC; 88342-TC